=== PATIENT | female | born 1930 | race Caucasian/White ===

== ENCOUNTER 2017-12-04 15:04 | Inpatient (IN) | payer OTHER ==
[2017-12-04] MEDS ORDERED: METOPROLOL TARTRATE 5 MG/5 ML INJ IV ONE ×2 (15:24→15:27)
[2017-12-04] MEDS ORDERED: NA CHLORIDE 0.9% 1,000 ML ONE (15:24)
[2017-12-04] MEDS ORDERED: DIGOXIN 0.25 MG/ML AMP ONE (15:26)
[2017-12-04 15:34] LABS: Absolute Lymphocytes (CBC) 1.6 K/uL (0.7-4.9); Absolute Monocytes 0.6 K/uL (0.1-1.3); Absolute Neutrophil 4.2 K/uL (1.8-8.0); Basophils % 0.8 % (0-1.3); Eosinophils % 1.4 % (0-4.4); Hematocrit 34.1 % (36.0-45.0); MCH 26.1 pg (27.0-35.0); MCV 80.8 fL (80-100); MPV 8.9 fL (7.6-11.3); Monocytes % 9.7 % (3.3-12.3); RBC Red Blood Cell Count 4.23 M/uL (3.86-4.86)
--- NOTE | 2017-12-04 15:35 | RAD REPORT ---
EXAM DESCRIPTION: RAD - Chest Single View - 12/04/2017 3:31 pm CLINICAL HISTORY: dizziness Chest pain. COMPARISON: Chest Single View dated 03/26/2016; Chest Single View dated 05/29/2015; CHEST SINGLE VIEW dated 08/11/2013; CHEST SINGLE VIEW dated 07/19/2013 FINDINGS: Portable technique limits examination quality. The lungs are grossly clear. The heart is normal in size. No displaced fractures.Multi lead pacer/def ibrillator device present. IMPRESSION: No acute intrathoracic process suspected.
[2017-12-04 15:38] LABS: Protime INR 1.23
[2017-12-04 15:59] LABS: ALT/SGPT 14 U/L (12-78); AST/SGOT 12 U/L (15-37); Albumin 3.3 g/dL (3.4-5.0); Alkaline Phosphatase 86 U/L (45-117); BUN Blood Urea Nitrogen 17 mg/dL (7-18); Bicarbonate 25 mmol/L (21-32); Bilirubin Direct 0.2 mg/dL (0-0.2); Bilirubin Total 0.6 mg/dL (0.2-1.0); Glucose Level 124 mg/dL (74-106); Magnesium 2.4 mg/dL (1.8-2.4); NT PRO-BNP 2850 pg/mL (<450); Potassium 3.4 mmol/L (3.5-5.1); Sodium Level 141 mmol/L (136-145); Troponin (Emerg Dept Use Only) < 0.02 ng/mL (0.0-0.045)
[2017-12-04] MEDS ORDERED: POTASSIUM CL SA 10 MEQ TAB PO ONE (17:02)
--- NOTE | 2017-12-04 17:11 | EDPHYS ---
Physician Documentation [facility] Name: Daxa Arvizu Age: 87 yrs Sex: Female : 1930 Arrival Date: 12/04/2017 Time: 15:06 Bed 2 Private MD: ED Physician Kwame Plunkett HPI: 12/04 15:42 This 87 yrs old Female presents to ER via EMS with complaints of Dizziness - pm1 Fatigue. 15:42 The patient presents with generalized weakness. Onset: The symptoms/episode pm1 began/occurred 3 week(s) ago. Context: occurred at home, just prior to the episode the patient experienced generalized weakness. Modifying factors: The symptoms are alleviated by nothing, the symptoms are aggravated by standing up. Associated signs and symptoms: Pertinent positives: "Chest discomfort" for the past 3 weeks, Pertinent negatives: abdominal pain, diaphoresis, focal weakness, headache, numbness, shortness of breath, tingling, Fall injury. Severity of symptoms: in the emergency department the symptoms are worse. Patient's baseline: Neuro: alert and fully oriented, Motor: no deficits, Speech: normal, The patient has a previous history of Atrial fibrillation and pacemaker. The patient has not experienced similar symptoms in the past. The patient has been recently seen by a physician: Dr. Keen 3 weeks ago, patient requested change in medication from Xarelto to Eliquis due to the cost. Patient presenting to the ER with complaints of generalized weakness for the past 3 weeks. Has reported some chest discomfort with her generalized weakness. Generalized weakness worse with standing up and ambulation with walker. No shortness of breath. Patient reports that she does not take any medications for rate control. Metoprolol is on her medication list but she denies that she takes the medication. Patient recently had Xarelto changed to Eliquis due to cost issues 3 weeks ago but she is planning to return to Xarelto due single day dosing. Historical: - Allergies: 15:23 Codeine; kr2 15:23 Sulfa (Sulfonamide Antibiotics); kr2 - PMHx: 15:23 Atrial Fib; CHF; Hyperlipidemia; Hypothyroidism; legally blind; osteoarthritis; kr2 Osteoporosis; Pacemaker; acid reflux; - Immunization history:: Adult Immunizations unknown. - Social history:: Smoking status: Patient/guardian denies using tobacco. - Ebola Screening: : Patient negative for fever greater than or equal to 101.5 degrees Fahrenheit, and additional compatible Ebola Virus Disease symptoms. ROS: 15:42 Eyes: Negative for injury, pain, redness, and discharge, ENT: Negative for injury, pm1 pain, and discharge, Neck: Negative for injury, pain, and swelling, Cardiovascular: Negative for chest pain, palpitations, and edema, Respiratory: Negative for shortness of breath, cough, wheezing, and pleuritic chest pain, Abdomen/GI: Negative for abdominal pain, nausea, vomiting, diarrhea, and constipation, Back: Negative for injury and pain, : Negative for injury, bleeding, discharge, and swelling, MS/Extremity: Negative for injury and deformity, Skin: Negative for injury, rash, and discoloration. 15:42 Constitutional: Positive for fatigue, Negative for body aches, fever, poor PO intake. 15:42 Neuro: Positive for generalized weakness, Negative for headache, numbness, seizure activity, syncope, near syncope, tingling. Exam: 15:42 Constitutional: This is a well developed, well nourished patient who is awake, alert, pm1 and in no acute distress. Head/Face: Normocephalic, atraumatic. Eyes: Pupils equal round and reactive to light, extra-ocular motions intact. Lids and lashes normal. Conjunctiva and sclera are non-icteric and not injected. Cornea within normal limits. Periorbital areas with no swelling, redness, or edema. ENT: Nares patent. No nasal discharge, no septal abnormalities noted. Tympanic membranes are normal and external auditory canals are clear. Oropharynx with no redness, swelling, or masses, exudates, or evidence of obstruction, uvula midline. Mucous membranes moist. Neck: Trachea midline, no thyromegaly or masses palpated, and no cervical lymphadenopathy. Supple, full range of motion without nuchal rigidity, or vertebral point tenderness. No Meningismus. Chest/axilla: Normal chest wall appearance and motion. Nontender with no deformity. No lesions are appreciated. 15:42 Respiratory: Lungs have equal breath sounds bilaterally, clear to auscultation and percussion. No rales, rhonchi or wheezes noted. No increased work of breathing, no retractions or nasal flaring. Abdomen/GI: Soft, non-tender, with normal bowel sounds. No distension or tympany. No guarding or rebound. No evidence of tenderness throughout. Back: No spinal tenderness. No costovertebral tenderness. Full range of motion. Skin: Warm, dry with normal turgor. Normal color with no rashes, no lesions, and no evidence of cellulitis. MS/ Extremity: Pulses equal, no cyanosis. Neurovascular intact. Full, normal range of motion. 15:42 ECG was reviewed by the Attending Physician. Atrial fibrillation 170 bpm 15:42 Neuro: Orientation: is normal, Mentation: is normal, Motor: is normal, moves all fours, Sensation: is normal, no obvious gross deficits. Vital Signs: 15:10 BP 129 / 69; Pulse 169; Resp 18; Temp 98.1; Pulse Ox 97% ; Weight 76.66 kg; Height 5 kr2 ft. 7 in. (170.18 cm); Pain 1/10; 15:27 BP 149 / 85; Pulse 106; Resp 20; Pulse Ox 100% on R/A; Pain 0/10; ss 16:30 BP 157 / 77; Pulse 99; Resp 18 S; Pulse Ox 100% on R/A; Pain 0/10; rv 17:38 BP 153 / 87; Pulse 95; Pulse Ox 97% on R/A; rv 17:52 BP 149 / 61; Pulse 96; Resp 19 S; Pulse Ox 98% on R/A; rv 19:13 BP 151 / 86; Pulse 96; Resp 17 S; Pulse Ox 100% on R/A; jd3 15:10 Body Mass Index 26.47 (76.66 kg, 170.18 cm) kr2 MDM: 15:08 Patient medically screened. pm1 15:20 ED course: Consult with carlos Barrientos digoxin 0.5 mg IVP and Lopressor 5 mg IVP x pm1 1 now and additional Lopressor 5 mg x 2 if needed for rate management and patient's blood pressure is normotensive. 17:09 Data reviewed: vital signs. Data interpreted: Pulse oximetry: on room air is 100 %. pm1 Interpretation: normal. Counseling: I had a detailed discussion with the patient and/or guardian regarding: the historical points, exam findings, and any diagnostic results supporting the discharge/admit diagnosis, lab results, radiology results, the need for further work-up and treatment in the hospital. 18:44 Physician consultation: A Jed BURGESS was called at 18:44, was contacted at 18:44, pm1 regarding admission, patient's condition, and will see patient tomorrow, Place patient as inpatient . 12/04 15:13 Order name: Basic Metabolic Panel pm1 12/04 15:13 Order name: CBC with Diff pm1 12/04 15:13 Order name: LFT's pm1 12/04 15:13 Order name: Magnesium; Complete Time: 16:02 pm1 12/04 15:13 Order name: NT PRO-BNP; Complete Time: 16:02 pm1 12/04 15:13 Order name: PT-INR; Complete Time: 16:02 pm1 12/04 15:13 Order name: Troponin (emerg Dept Use Only); Complete Time: 16:02 pm1 12/04 15:13 Order name: TSH; Complete Time: 16:02 pm1 12/04 15:14 Order name: Basic Metabolic Panel; Complete Time: 16:02 EDMS 12/04 15:14 Order name: CBC with Automated Diff; Complete Time: 15:41 EDMS 12/04 15:14 Order name: Liver (Hepatic) Function; Complete Time: 16:02 EDMS 12/04 16:02 Order name: Urine Microscopic Only; Complete Time: 18:28 pm1 12/04 18:14 Order name: Urine Dipstick--Ancillary (enter results); Complete Time: 20:22 bd 12/04 18:25 Order name: Urine Culture EDMS 12/04 15:13 Order name: XRAY Chest (1 view); Complete Time: 15:41 pm1 12/04 15:13 Order name: EKG; Complete Time: 15:14 pm1 12/04 15:13 Order name: Cardiac monitoring; Complete Time: 15:24 pm1 12/04 15:13 Order name: EKG - Nurse/Tech; Complete Time: 15:24 pm1 12/04 15:13 Order name: IV Saline Lock; Complete Time: 15:24 pm1 12/04 15:13 Order name: Labs collected and sent; Complete Time: 15:24 pm1 12/04 15:13 Order name: O2 Per Protocol; Complete Time: 15:24 pm1 12/04 15:13 Order name: O2 Sat Monitoring; Complete Time: 15:24 pm1 12/04 16:02 Order name: Urine Dipstick-Ancillary (obtain specimen); Complete Time: 17:35 pm1 12/04 17:25 Order name: EKG Electrocardiogram EDMS Administered Medications: 15:23 Drug: Lopressor 5 mg {Note: BP 149/85, HR 167.} Route: IVP; Site: left antecubital; hb 16:58 Follow up: Response: No adverse reaction rv 15:27 Drug: Digoxin 0.5 mg Route: IVP; Site: left antecubital; ss 16:59 Follow up: Response: No adverse reaction rv 16:58 Drug: Potassium Chloride 20 mEq Route: PO; rv 17:35 Follow up: Response: No adverse reaction rv 18:30 Drug: Rocephin 1 grams Route: IV; Rate: calculated rate; Site: right antecubital; rv 19:14 Follow up: Response: No adverse reaction; IV Status: Completed infusion jd3 19:09 Drug: Xarelto 20 mg Route: PO; jd3 19:56 Follow up: Response: No adverse reaction jd3 19:28 Drug: Metoprolol 25 mg Route: PO; jd3 19:56 Follow up: Response: No adverse reaction jd3 Disposition: 12/05 07:47 Co-signature as Attending Physician, Kwame Plunkett MD I agree with the assessment and wa plan of care. Disposition: 12/04/17 17:10 Hospitalization ordered by Bianka Adkins for Inpatient Admission. Preliminary diagnosis is Atrial fibrillation and flutter. - Bed requested for Telemetry/MedSurg (Inpatient). - Status is Inpatient Admission. jd3 - Condition is Stable. - Problem is new. - Symptoms have improved. UTI on Admission? Yes Signatures: Dispatcher [employer] EDVT Larissa Hilario RN RN dw Smirch, Shelby, RN RN ss Marinas, Patrick, JESSICA DIRECTOR OF CRITICAL CARE pm1 Diann Petersen RN RN Kwame Plunkett MD MD wa Davies, Jonathon, RN RN jPat Drew RN RN kr2 Ollie Mendez RN RN rv Corrections: (The following items were deleted from the chart) 12/04 18:45 17:10 Hospitalization Ordered by Bianka Adkins MD for Inpatient Admission. Preliminary pm1 diagnosis is Atrial fibrillation and flutter. Bed requested for Telemetry/MedSurg (Inpatient). Status is Inpatient Admission. Condition is Stable. Problem is new. Symptoms have improved. UTI on Admission? No. pm1 19:06 18:45 12/04/2017 17:10 Hospitalization Ordered by A Jed BURGESS for Inpatient Admission. dw Preliminary diagnosis is Atrial fibrillation and flutter. Bed requested for Telemetry/MedSurg (Inpatient). Status is Inpatient Admission. Condition is Stable. Problem is new. Symptoms have improved. UTI on Admission? Yes. pm1 20:18 19:06 12/04/2017 17:10 Hospitalization Ordered by A Jed BURGESS for Inpatient Admission. jd3 Preliminary diagnosis is Atrial fibrillation and flutter. Bed requested for Telemetry/MedSurg (Inpatient). Status is Inpatient Admission. Condition is Stable. Problem is new. Symptoms have improved. UTI on Admission? Yes. dw
--- NOTE | 2017-12-04 17:11 | ER ---
Nurse's Notes [facility] Name: Daxa Arvizu Age: 87 yrs Sex: Female : 1930 Arrival Date: 12/04/2017 Time: 15:06 Bed 2 Private MD: Diagnosis: Atrial fibrillation and flutter Presentation: 12/04 15:07 Presenting complaint: EMS states: Patient complains of dizziness and fatigue since kr2 switching from Xarelto to Eliquis 3 weeks ago, states today she felt worse and her blood pressure read low on her home monitor. Transition of care: patient was not received from another setting of care. Onset of symptoms was December 04, 2017. Risk Assessment: Do you want to hurt yourself or someone else? Patient reports no desire to harm self or others. Initial Sepsis Screen: Does the patient meet any 2 criteria? No. Patient's initial sepsis screen is negative. Does the patient have a suspected source of infection? No. Patient's initial sepsis screen is negative. Care prior to arrival: None. 15:07 Method Of Arrival: EMS kr2 15:07 Acuity: SOHAN 2 kr2 Historical: - Allergies: 15:23 Codeine; kr2 15:23 Sulfa (Sulfonamide Antibiotics); kr2 - PMHx: 15:23 Atrial Fib; CHF; Hyperlipidemia; Hypothyroidism; legally blind; osteoarthritis; kr2 Osteoporosis; Pacemaker; acid reflux; - Immunization history:: Adult Immunizations unknown. - Social history:: Smoking status: Patient/guardian denies using tobacco. - Ebola Screening: : Patient negative for fever greater than or equal to 101.5 degrees Fahrenheit, and additional compatible Ebola Virus Disease symptoms. Screenin:24 Abuse screen: Denies threats or abuse. Denies injuries from another. Nutritional hb screening: No deficits noted. Tuberculosis screening: No symptoms or risk factors identified. Fall Risk None identified. Assessment: 15:10 Reassessment: EKG performed showing Afib, pulse of 169, provider notified, patient carleen moved to Trauma room 2. 15:20 General: Appears in no apparent distress. comfortable, Behavior is calm, cooperative, ss Reports fatigue for x "a few days". Denies fever, feeling ill. Pain: Denies pain. Neuro: Level of Consciousness is awake, alert, obeys commands, Oriented to person, place, time, situation, Speech is normal. Cardiovascular: Heart tones S1 S2 present Capillary refill < 3 seconds is brisk in bilateral fingers Patient's skin is warm and dry. Respiratory: Reports shortness of breath on exertion Airway is patent Respiratory effort is even, unlabored, Denies pain with respiration, pain with cough, pain with movement. GI: No signs and/or symptoms were reported involving the gastrointestinal system. Patient currently denies abdominal pain, diarrhea, nausea, vomiting. : No signs and/or symptoms were reported regarding the genitourinary system. EENT: Nares are clear Oral mucosa is moist. Throat is clear. Derm: Skin is intact, is healthy with good turgor, Skin is dry, Skin is pink, warm \\T\\ dry. normal. Musculoskeletal: Circulation, motion, and sensation intact. Range of motion: intact in all extremities, Swelling absent. 16:31 Reassessment: Patient appears in no apparent distress at this time. Patient and/or rv family updated on plan of care and expected duration. Pain level reassessed. Patient is alert, oriented x 3, equal unlabored respirations, skin warm/dry/pink. 17:35 Reassessment: Patient appears in no apparent distress at this time. Patient and/or rv family updated on plan of care and expected duration. Pain level reassessed. Patient is alert, oriented x 3, equal unlabored respirations, skin warm/dry/pink. REFUSED STRAIGHT CATHETER. 19:13 Reassessment: Patient appears in no apparent distress at this time. No changes from jd3 previously documented assessment. Patient and/or family updated on plan of care and expected duration. Pain level reassessed. Patient is alert, oriented x 3, equal unlabored respirations, skin warm/dry/pink. Vital Signs: 15:10 BP 129 / 69; Pulse 169; Resp 18; Temp 98.1; Pulse Ox 97% ; Weight 76.66 kg; Height 5 kr2 ft. 7 in. (170.18 cm); Pain 1/10; 15:27 BP 149 / 85; Pulse 106; Resp 20; Pulse Ox 100% on R/A; Pain 0/10; ss 16:30 BP 157 / 77; Pulse 99; Resp 18 S; Pulse Ox 100% on R/A; Pain 0/10; rv 17:38 BP 153 / 87; Pulse 95; Pulse Ox 97% on R/A; rv 17:52 BP 149 / 61; Pulse 96; Resp 19 S; Pulse Ox 98% on R/A; rv 19:13 BP 151 / 86; Pulse 96; Resp 17 S; Pulse Ox 100% on R/A; jd3 15:10 Body Mass Index 26.47 (76.66 kg, 170.18 cm) kr2 ED Course: 15:06 Patient arrived in ED. kr2 15:08 Nino Murillo NP is PHCP. pm1 15:08 Kwame Plunkett MD is Attending Physician. pm1 15:09 Triage completed. kr2 15:10 EKG done, by ED staff, reviewed by Nino Murillo NP. kr2 15:17 EKG completed in triage. Results shown to MD. rv 15:19 Patient has correct armband on for positive identification. Placed in gown. Bed in low hb position. Call light in reach. Side rails up X 1. equipment monitor phototypesetting on. Pulse ox on. NIBP on. 15:19 Inserted saline lock: 20 gauge in left antecubital area, using aseptic technique. Blood hb collected. 15:27 Arm band placed on right wrist. ss 15:31 XRAY Chest (1 view) In Process Unspecified. EDMS 15:49 Tracy Monte, TERRI is Primary Nurse. ss 16:59 Basic Metabolic Panel Sent. rv 16:59 CBC with Diff Sent. rv 16:59 LFT's Sent. rv 17:10 Bianka Adkins MD is Hospitalizing Provider. pm1 17:36 Urine collected: PATIENT REFUSED STRAIGHT CATHETER. rv 18:50 Awaiting bed assignment. rv 19:16 Report given to AMELIA MURRAY. rv 19:55 No provider procedures requiring assistance completed. Patient admitted, IV remains in jd3 place. Administered Medications: 15:23 Drug: Lopressor 5 mg {Note: BP 149/85, HR 167.} Route: IVP; Site: left antecubital; hb 16:58 Follow up: Response: No adverse reaction rv 15:27 Drug: Digoxin 0.5 mg Route: IVP; Site: left antecubital; ss 16:59 Follow up: Response: No adverse reaction rv 16:58 Drug: Potassium Chloride 20 mEq Route: PO; rv 17:35 Follow up: Response: No adverse reaction rv 18:30 Drug: Rocephin 1 grams Route: IV; Rate: calculated rate; Site: right antecubital; rv 19:14 Follow up: Response: No adverse reaction; IV Status: Completed infusion jd3 19:09 Drug: Xarelto 20 mg Route: PO; jd3 19:56 Follow up: Response: No adverse reaction jd3 19:28 Drug: Metoprolol 25 mg Route: PO; jd3 19:56 Follow up: Response: No adverse reaction jd3 Outcome: 17:10 Decision to Hospitalize by Provider. pm1 19:55 Admitted to Tele accompanied by tech, via wheelchair, room 401, with chart, Report jd3 called to Swapna MURRAY 19:55 Condition: stable 19:55 Instructed on the need for admit, Demonstrated understanding of instructions. 20:18 Patient left the ED. jd3 Signatures: Dispatcher [employer] EDMS Tracy Monte RN RN ss Nino Murillo, COMMUNITY ENGAGEMENT REPRESENTATIVE COMMUNITY ENGAGEMENT REPRESENTATIVE pm1 Diann Petersen RN RN hb Davies, Jonathon, RN RN jd3 Pat Nuñez RN RN kr2 Ollie Mendez RN RN rv Corrections: (The following items were deleted from the chart) 15:13 15:07 Acuity: SOHAN 3 kr2 kr2
[2017-12-04 18:23] LABS: Urine Bacteria 20-50 /HPF (<20); Urine Culture Reflex Order REFLEXED; Urine RBC <5 /HPF (NONE SEEN)
[2017-12-04] MEDS ORDERED: CEFTRIAXONE 1000 MG/VIAL ONE (18:38)
[2017-12-04] MEDS ORDERED: RIVAROXABAN 20 MG TABLET PO ONE (19:00)
[2017-12-04] MEDS ORDERED: METOPROLOL TAR 25 MG TAB ONE (19:29)
[2017-12-04 19:33] LABS: Urine Blood TRACE (NEG); Urine Glucose NEGATIVE (NEG); Urine Protein NEGATIVE (NEG); Urine Specific Gravity 1.015 (1.005-1.030)
[2017-12-04] MEDS ORDERED: ACETAMINOPHEN 500 MG TAB PO PRN (20:25)
[2017-12-05 06:00] LABS: Absolute Lymphocytes (CBC) 1.8 K/uL (0.7-4.9); Absolute Monocytes 0.7 K/uL (0.1-1.3); Absolute Neutrophil 2.9 K/uL (1.8-8.0); Basophils % 0.8 % (0-1.3); Hematocrit 31.9 % (36.0-45.0); Lymphocytes % 32.1 % (15.3-44.8); MCH 26.1 pg (27.0-35.0); MCV 80.4 fL (80-100); Monocytes % 12.4 % (3.3-12.3); RBC Red Blood Cell Count 3.97 M/uL (3.86-4.86)
[2017-12-05] MEDS ORDERED: METOPROLOL TAR 25 MG TAB PO SCH (06:00)
[2017-12-05 06:25] LABS: Potassium 4.9 mmol/L (3.5-5.1)
--- NOTE | 2017-12-05 07:48 | EKG ---
Test Date: 2017-12-05 Test Time: 01:30:14 Cloth Colorer: HEAVEN MEASUREMENT RESULTS: Intervals: Rate: 81 [place]: QRSD: 126 QT: 406 QTc: 471 [place]: P: [place]: QRS: -78 T: 101 INTERPRETIVE STATEMENTS: Atrial-sensed ventricular-paced rhythm Tracking sinus rhythm Compared to ECG 12/04/2017 15:34:52 atrial rhythm is no longer fibrillation Electronically Signed On 12-05-17 07:48:08 CDT by Yimi Chris
--- NOTE | 2017-12-05 07:51 | EKG ---
Test Date: 2017-12-04 Test Time: 15:34:52 Correctional Treatment Specialist: VAZQUEZ MEASUREMENT RESULTS: Intervals: Rate: 94 [place]: QRSD: 124 QT: 384 QTc: 480 [place]: P: [place]: QRS: -74 T: 101 INTERPRETIVE STATEMENTS: Atrial-sensed ventricular-paced rhythm tracking Atrial fibrillation Biventricular pacemaker detected Abnormal ECG Compared to ECG 12/04/2017 15:11:04 Ventricular tachycardia is no longer present Electronically Signed On 12-05-17 07:50:34 CDT by Yimi Chris
--- NOTE | 2017-12-05 07:52 | EKG ---
Test Date: 2017-12-04 Test Time: 15:11:04 Shuttle Car Operator: MEASUREMENT RESULTS: Intervals: Rate: 170 [place]: QRSD: 134 QT: 302 QTc: 507 [place]: P: [place]: QRS: -59 T: 106 INTERPRETIVE STATEMENTS: Ventricular tachycardia Abnormal ECG Compared to ECG 03/26/2016 01:33:11 Atrial-sensed ventricular-paced rhythm is no longer present Electronically Signed On 12-05-17 07:51:28 CDT by Yimi Chris
[2017-12-05] MEDS ORDERED: INFLUENZA VACCINE (for 3y+) 0.5 ML DOSE IMVAC ONE (08:00)
--- NOTE | 2017-12-05 12:28 | CON ---
History Of Present Illness: Mrs. Arvizu is 87. She came to the hospital with her heart racing. She was in what looks like ventricular tachycardia. It could be atrial flutter with 1:1 conduction and left bundle-branch block aberrancy. A pacemaker check will tell us. In any event, the defibrillator apparently did not terminate the rhythm as it should have, so it was a problem. In the emergency ro om, she was seen and I think she received some beta-blockers and then went into AFib for now, now she is in sinus rhythm, and the defibrillator is sensing atrial activity, pacing the ventricle, biventri cular pacing. She received Lopressor and digoxin and that converted her rhythm. She is not on cardi oversion. The patient has had a defibrillator for several years. It is a Medcurrent device _ the last time we checked it was August of this year. It was working fine. She has a history of coronary heart disease. She has stents in her heart, and she has cardiomyopathy. Most recent EF s are close to the normal range. Medications: Outpatient medications have been ranitidine, simvastatin, hydromorphone, folic acid, Xa relto, docusate, alendronate, omeprazole, latanoprost, ropinirole, and levothyroxine. Physical Examination: VITAL SIGNS: 5 feet and 9 inches, 155 pounds. HEENT: Normal. Lungs: Clear. Heart: Regular rate and rhythm. There is a 1/6 holosystolic murmur. No diastolic murmur. Abdomen: Soft. Extremities: No edema. Distal pulses palpable. Social History: The patient uses no tobacco. No illegal drugs or alcohol. Impression: The patient had severe ventricular tachycardia or a very rapid atrial flutter that was f tomeka to be addressed appropriately via the defibrillator. We will get a defibrillator check. A [employer] rep will be asked to come today and we will go over reprogramming things with her elec trophysiologist while the rep is here. JETHRO Voice ID: [id number] Report ID: [id number]
--- NOTE | 2017-12-05 12:53 | ECHO ---
HEIGHT: 5 ft 9 in WEIGHT: 155 lb 8 oz DATE OF STUDY: 12/05/[address]: Nino Murillo NP 2-DIMENSIONAL: YES M.MODE: YES DOPPLER: YES COLOR FLOW: YES TDS: NO PORTABLE: NO DEFINITY: NO BUBBLE STUDY: NO DIAGNOSIS: ATRIAL FIBRILLATION CARDIAC HISTORY: CATHERIZATION: YES SURGERY: YES PROSTHETIC VALVE: NO PACEMAKER: YES MEASUREMENTS (cm) DIASTOLIC (NORMALS) SYSTOLIC (NORMALS) IVSd 1.1 (0.6-1.2) LA Diam 3.6 (1.9-4.0) LVEF 58% LVIDd 4.4 (3.5-5.7) LVIDs 3.0 (2.0-3.5) %FS 31% LVPWd 1.1 (0.6-1.2) Ao Diam 3.0 (2.0-3.7) 2 DIMENSIONAL ASSESSMENT: RIGHT ATRIUM: DILATED LEFT ATRIUM: NORMAL RIGHT VENTRICLE: PACEMAKER CATHETER LEFT VENTRICLE: NORMAL TRICUSPID VALVE: NORMAL MITRAL VALVE: NORMAL PULMONIC VALVE: NORMAL AORTIC VALVE: MILD SCLEROSIS PERICARDIAL EFFUSION: NONE AORTIC ROOT: NORMAL LEFT VENTRICULAR WALL MOTION: NORMAL DOPPLER/COLOR FLOW: MILD AORTIC, MITRAL AND TRICUSPID REGURGITATION. NORMAL RIGHT VENTRICULAR SYSTOLIC PRESSURE. NO AORTIC STENOSIS. COMMENTS: NORMAL LEFT VENTRICULAR EJECTION FRACTION. DILATED RIGHT ATRIUM. PACEMAKER CATHETER IN RIGHT VENTRICLE. MILD AORTIC SCLEROSIS WITH NO AORTIC STENOSIS. MILD AORTIC, MITRAL AND TRICUSPID REGURGITATION. TECHNOLOGIST: Arie WHARTON
[2017-12-05] MEDS ORDERED: RIVAROXABAN 10 MG TABLET PO SCH (17:00)
[2017-12-05] MEDS: RIVAROXABAN 20 MG TABLET PO SCH (17:11)
[2017-12-05] MEDS: SOTALOL HCL 80 MG TAB PO SCH (17:11)
--- NOTE | 2017-12-05 18:52 | SS ---
Date of Admission: 12/05/2017 Chief Complaint: Feeling weak, tired, and palpitation. History Of Present Illness: This is an 87-year-old female patient who lives at home, has history of atrial fibrillation and was taking Xarelto, but due to the cost, it was changed about 2-3 weeks ago to Eliquis, after she saw Dr. Blount. The patient realized that the Eliquis cost was as much as Xarelto, so she went back on Xarelto 20 mg daily dose. Meanwhile in last 2 weeks, she is having problem with the palpitation off and on along with feeling weak, tired, and she came in with increasing problems, increasing complaints to emergency room yesterday. After she was evaluated in the ER, she was found to have atrial fibrillation with rapid ventricular rate with heart rate around 170 per minute. She was hemodynamically stable. She was given IV and oral metoprolol and anticoagulation therapy was given and she was admitted to the hospital. When I saw her this morning, she was feeling fine, had no complaints. She denies any chest pain or shortness of breath. No fall injury. No vomiting or diarrhea. Allergies: TO SULFA AND CODEINE. Medications: List reviewed. Review of Systems: Cardiovascular: As mentioned above. Constitutional: As mentioned above. All other systems reviewed and negative. Family History: Significant for osteoarthritis and liver cancer. Social History: Negative for smoking, alcohol use. Past Surgical History: Coronary artery angioplasty with stent placement in 2008 , hysterectomy, AICD placement July 27, 2013; kyphoplasty in 2009 for compression fracture of thoracic spine; foot and hand surgery, breast biopsy, and D and C. Past Medical History: Significant for compression fracture of spine, hyperlipidemia, impaired fasting glucose, hypertension, hypothyroidism, chronic systolic congestive heart failure, paroxysmal atrial fibrillation. Osteoarthritis at multiple sites, gastroesophageal reflux disease, and the patient is legally blind. Physical Examination: Vital Signs: This morning, temperature 97.1, pulse 81, respiratory rate 20, blood pressure 165/72, oxygen saturation 96%, height 5 feet 9 inches, weight 155 pounds. General: Awake, alert, oriented, not in distress. HEENT: Head atraumatic, normocephalic. Conjunctivae nonerythematous. Sclerae white. Mouth, no thrush or edema noted. Ears/Nose, no mass, lesion, discharge noted. Neck: Supple. No JVD, lymph nodes, bruit, thyromegaly noted. Lungs: Bilateral good equal air entry. Clear to auscultation. No rhonchi. No rales. Heart: Normal heart sounds, no murmur or gallop. Abdomen: Soft, bowel sounds normal. No guarding, rigidity, tenderness, mass, hepatosplenomegaly, distention, or bruit noted. Extremities: No leg edema. No calf tenderness. Skin: No rash, ulcer, cellulitis. Lymphatics: No lymph node enlargement in neck, supraclavicular, infraclavicular region. Neuro: No focal neurological deficit. Chest: Unremarkable. External Genitalia: Deferred. Rectal: Deferred. Laboratory Data: Yesterday sodium 141, potassium 3.4, chloride 110, bicarb 25, BUN 17, creatinine 1.10, glucose 124. Liver function tests unremarkable. Troponin less than 0.02 on the first set. Second and third set 0.03. ProBNP 2850. Liver function tests unremarkable. TSH 1.3. This morning, sodium 143, potassium 4.9, chloride 111, bicarb 27, BUN 16, creatinine 1.0, glucose 105. ProBNP 4995. INR 1.23. Urinalysis, trace esterase, wbc less than 5, bacteria 20-50. Yesterday, white count 6.6, hemoglobin 11, platelets 256; this morning white count 5.6, hemoglobin 10.4, platelets 239. Chest x-ray, no acute intrathoracic changes. Electrocardiogram, atrial sensed ventricular paced rhythm. Hospital Course: After the patient was admitted to the hospital, she was kept on telemetry overnight. Her condition has remained stable. This morning when I saw her, she had no complaints. There was no clinical evidence of any congestive heart failure. Electrolyte was corrected. Potassium is normal, this morning. Cardiology consultation is pending. After Commercial Roofer has chance to evaluate the patient, we will decide if okay with personnel security specialist, our plan is to discharge the patient to go home. I did discuss with her to continue her Xarelto that she takes at home. She takes it probably around lunch time but I explained it to her to take it with her evening meal as her evening meal is the biggest meal of the day. We will also continue metoprolol at current dose. Upon discharge, the patient to continue all her previous home medications the way she was taking, including Xarelto and add metoprolol 25 mg twice a day as prescribed. The patient has appointment to see me at office in about 2 weeks and she was advised to keep that appointment and she should follow up with Commercial Roofer per Commercial Roofer's instruction. Final Diagnoses: 1. Atrial fibrillation with rapid ventricular rate. 2. Hypokalemia. 3. Hypertension. 4. Hyperlipidemia. 5. Chronic systolic congestive heart failure. 6. Hypothyroidism. 7. Impaired fasting glucose. 8. Gastroesophageal reflux disease. 9. Osteoarthritis, multiple sites. VLADIMIR/MODL Voice ID: [id number] Report ID: [id number] MTDD
[2017-12-05] MEDS ORDERED: HYDROMORPHONE ORAL 4 MG TAB PO PRN (19:19)
[2017-12-05] MEDS ORDERED: DOCUSATE NA 100 MG CAP PO PRN (19:19)
[2017-12-05] MEDS ORDERED: ATORVASTATIN 20 MG TAB PO SCH (21:00)
[2017-12-05] MEDS ORDERED: RANITIDINE 150 MG TABLET PO SCH (21:00)
[2017-12-05] MEDS ORDERED: ROPINIROLE HCL 0.25 MG TAB PO SCH (21:00)
[2017-12-05] MEDS: PANTOPRAZOLE 40MG TABLET PO SCH (21:29)
[2017-12-06 05:31] VITALS: BMI 23.0
[2017-12-06] MEDS: LEVOTHYROXINE SOD 0.088 MG TAB PO SCH ×2 (05:41→05:49)
[2017-12-06] MEDS: SOTALOL HCL 80 MG TAB PO SCH ×2 (05:41→17:26)
[2017-12-06] MEDS ORDERED: LEVOTHYROXINE SOD 0.075 MG TAB PO SCH (06:00)
--- NOTE | 2017-12-06 08:16 | DS ---
Date of Discharge: 12/06/2017 Disposition: The patient will be discharged to go home. Physical Examination: HEENT: Unremarkable. Lungs: Clear to auscultation. Heart: Sounds normal. Abdomen: Soft. Bowel sounds normoactive. No guarding, rigidity, tenderness, or distention. Extremities: No leg edema. Discharge Medications And Instructions: 1.Continue all prior home medications except do not take any metoprolol and start to take sotalol 80 mg 1 tablet by mouth 2 times a day. 2.Follow up at my office per scheduled appointment, which is this month and follow up with cardiolog ist, Dr. Blount as per his instruction in next 1-2 weeks. Hospital Course: An 87-year-old female patient who was admitted to the hospital after she came into emergency room with palpitation, feeling weak and tired. Please see dictated H and P for more inform ation. The patient was in atrial fibrillation with rapid ventricular rate in the emergency room. Natalie sanchez normally takes Xarelto at home and her Xarelto was continued. Echocardiogram revealed normal eject ion fraction of 58%. Her atrial fibrillation was treated in the emergency room with IV metoprolol an d oral metoprolol was started. Cardiology consultation was requested. Dr. Chris saw her from [facility] yesterday and he stopped metoprolol and started her on sotalol. The patient has tolera robinson this very well. This morning, she is feeling fine, asymptomatic and the patient will be discharg ed to go home hopefully today when okay with wheel braider. Her potassium was low when she came in, w hich was 3.4, it was corrected yesterday, potassium came up to 4.9. Clinically, there is no evidence of any congestive heart failure problem. Final Diagnoses: 1.Atrial fibrillation with rapid ventricular rate. 2.Hypokalemia. 3.Hypertension. 4.Hyperlipidemia. 5.Chronic systolic congestive heart failure. 6.Hypothyroidism. 7.Impaired fasting glucose. 8.Gastroesophageal reflux disease. 9.Osteoarthritis, multiple sites. Special Instructions Given To Patient: That yesterday I did send a prescription for metoprolol to [facility] pharmacy, but her metoprolol has been discontinued by wheel braider, and sotalol was started yesterd ay, so the patient was instructed not to supervisor picking crew the prescription for metoprolol from pharmacy and we will also have nursing staff contact pharmacy to cancel that prescription as patient will be taking sotalol as prescribed. VLADIMIR/MODL Voice ID: [id number] Report ID: [id number]
[2017-12-06] MEDS ORDERED: HOME MED 1 EA UNK (Latanoprost/Pf [Latanoprost 0.005% Eye Drop] 1 DROP) EACH EYE SCH (09:00)
[2017-12-06] MEDS ORDERED: FOLIC ACID 1 MG TABLET PO SCH (09:00)
[2017-12-06] MEDS: PANTOPRAZOLE 40MG TABLET PO SCH (10:11)
[2017-12-06 10:41] VITALS: O2SAT 97
[2017-12-06 13:18] VITALS: TEMP 97.5
--- NOTE | 2017-12-06 16:04 | PN ---
Date of Progress Note: 12/06/2017 Ms. Arvizu was admitted to Dr. Adkins on 12/05/[address] Chris for rapid atrial flutter brabara tahir [place]. She has a history of defibrillator, CHF that has resolved, CAD status post PCI, dyslipidemia , and history of atrial fibrillation. Interrogation by the defibrillator showed that it was not set up to terminate atrial fibrillation, but that was the rhythm she had, so we switched to Betapace from metoprolol 80 b.i.d. She has received 1 dose. No QT prolongation. Sinus rhythm today. She can go home after the third dose of Betapace. She is to continue her Xarelto and [facility] 2 [facility]. ANTONINO/ALLA Voice ID: [id number] Report ID: [id number]
[2017-12-06] MEDS: RIVAROXABAN 20 MG TABLET PO SCH (17:26)
[2017-12-06 17:27] VITALS: BP 141/63
== END 2017-12-06 17:55 | disposition home or self-care (01) | DRG 309 ==
LOC: ER 15:04 → OBSVTOIN 18:46 → INTOOBSV 18:46 → ERHOLD 18:46 → 4TH 19:55 → OBSVTOIN 12-05 19:17
PROVIDERS: ADMIT Internal Medicine; ATTEND Internal Medicine
DX: I48.0 Paroxysmal atrial fibrillation (principal); I50.22 Chronic systolic (congestive) heart failure; E87.6 Hypokalemia; I11.0 Hypertensive heart disease with heart failure; E78.5 Hyperlipidemia, unspecified; E03.9 Hypothyroidism, unspecified; K21.9 Gastro-esophageal reflux disease without esophagitis; M19.90 Unspecified osteoarthritis, unspecified site; Z88.5 Allergy status to narcotic agent; Z88.2 Allergy status to sulfonamides; R73.02 Impaired glucose tolerance (oral); Z79.01 Long term (current) use of anticoagulants; Z95.810 Presence of automatic (implantable) cardiac defibrillator
CPT/HCPCS: 36415; 71045; 80048; 80076; 81003; 81015; 83735; 83880; 84443; 84484; 85025; 85610; 87086; 87088; 93005; 93306; 96365; 96375; 99285; G0008; G0378; J1160; J7030; Q2035

== ENCOUNTER 2018-03-08 11:06 | Emergency (ER) | payer OTHER ==
[2018-03-08 11:51] LABS: Urine Blood NEGATIVE (NEG); Urine Glucose NEGATIVE (NEG); Urine Protein NEGATIVE (NEG)
[2018-03-08 12:28] LABS: Absolute Lymphocytes (CBC) 1.4 K/uL (0.7-4.9); Absolute Monocytes 0.7 K/uL (0.1-1.3); Absolute Neutrophil 5.1 K/uL (1.8-8.0); Basophils % 0.7 % (0-1.3); Eosinophils % 1.6 % (0-4.4); Hematocrit 33.1 % (36.0-45.0); Lymphocytes % 19.5 % (15.3-44.8); MPV 8.3 fL (7.6-11.3); Monocytes % 8.9 % (3.3-12.3); RBC Red Blood Cell Count 4.14 M/uL (3.86-4.86)
[2018-03-08] MEDS ORDERED: MORPHINE 2 MG/ML SYR ONE ×2 (12:29→13:33)
[2018-03-08 12:32] LABS: Protime INR 1.05
[2018-03-08 12:39] LABS: Potassium 4.1 mmol/L (3.5-5.1)
--- NOTE | 2018-03-08 13:03 | RAD REPORT ---
EXAM DESCRIPTION: RAD - Forearm Left - 03/08/2018 12:50 pm CLINICAL HISTORY: Pain;Deformity COMPARISON: Forearm Left dated 03/26/2016 FINDINGS: Diffuse osteopenia is seen. Hardware is in place in the distal shaft of the radius and uln a. Fracture is suspected involving the distal radius, with impaction and angulation noted along the u lnar aspect.
--- NOTE | 2018-03-08 13:58 | ER ---
Nurse's Notes [facility] Name: Daxa Arvizu Age: 87 yrs Sex: Female : 1930 Arrival Date: 03/08/2018 Time: 11:14 Bed 5 Private MD: Bianka Adkins C Diagnosis: Left distal radius racture, comminuted and slosed Presentation: 03/08 11:15 Presenting complaint: EMS states: MECHANICAL FALL WITH LEFT WRIST INJURY. Transition of bp care: patient was not received from another setting of care. Onset of symptoms was March 08, 2018 at 10:30. Risk Assessment: Do you want to hurt yourself or someone else? Patient reports no desire to harm self or others. Initial Sepsis Screen: Does the patient meet any 2 criteria? No. Patient's initial sepsis screen is negative. Does the patient have a suspected source of infection? No. Patient's initial sepsis screen is negative. Care prior to arrival: Splint applied. Glucose check: 132. 11:15 Method Of Arrival: EMS: [facility] bp 11:15 Acuity: SOHAN 3 bp Triage Assessment: 11:29 General: Appears in no apparent distress. uncomfortable, Behavior is cooperative, bp appropriate for age, anxious. Pain: Complains of pain in left wrist. EENT: No deficits noted. Neuro: Level of Consciousness is awake, alert, obeys commands, Oriented to person, place, time, situation, Appropriate for age. Cardiovascular: No deficits noted. Respiratory: Airway is patent Respiratory effort is unlabored, Respiratory pattern is regular, symmetrical. GI: No signs and/or symptoms were reported involving the gastrointestinal system. : No signs and/or symptoms were reported regarding the genitourinary system. Derm: No deficits noted. Musculoskeletal: Bony deformity noted of left wrist. Injury Description: Deformity sustained to left wrist. Historical: - Allergies: 11:29 Sulfa (Sulfonamide Antibiotics); bp 11:29 Codeine; bp - Home Meds: 11:29 Ranitidine Oral [Active]; Xarelto Oral [Active]; Sotalol Oral [Active]; Simvastatin bp Oral [Active]; Metoprolol Tartrate Oral [Active]; Hydromorphone Oral [Active]; Eliquis oral oral [Active]; - PMHx: 11:29 acid reflux; Atrial Fib; CHF; Hyperlipidemia; Hypothyroidism; legally blind; bp osteoarthritis; Osteoporosis; Pacemaker; - Immunization history:: Adult Immunizations up to date. - Social history:: Smoking status: Patient/guardian denies using tobacco. - Ebola Screening: : Patient negative for fever greater than or equal to 101.5 degrees Fahrenheit, and additional compatible Ebola Virus Disease symptoms Patient denies exposure to infectious person Patient denies travel to an Ebola-affected area in the 21 days before illness onset No symptoms or risks identified at this time. Screenin:17 Abuse screen: Denies threats or abuse. Denies injuries from another. Nutritional bp screening: No deficits noted. Tuberculosis screening: No symptoms or risk factors identified. Fall Risk None identified. Assessment: 11:30 General: Appears in no apparent distress. uncomfortable, Behavior is calm, cooperative, bp appropriate for age. Pain: Complains of pain in left wrist. Neuro: Level of Consciousness is awake, alert, obeys commands, Oriented to person, place, time, situation, Appropriate for age. Cardiovascular: No deficits noted. Respiratory: Airway is patent Respiratory effort is even, unlabored, Respiratory pattern is regular, symmetrical. GI: No signs and/or symptoms were reported involving the gastrointestinal system. : No signs and/or symptoms were reported regarding the genitourinary system. EENT: No deficits noted. Derm: No deficits noted. Musculoskeletal: No deficits noted. 12:30 Reassessment: FOREARM FX NOTED ON XRAY, RAD RESULTS AND SPLINTING PENDING. bp 14:10 Reassessment: PT D/C HOME VIA W/C WITH FAMILY, DX WITH DISTAL FOREARM FX. bp Vital Signs: 11:43 BP 165 / 91; Pulse 65; Resp 16; Temp 98.4; Pulse Ox 97% ; Weight 77.11 kg; Height 5 ft. bp 7 in. (170.18 cm); 12:58 BP 202 / 75; Pulse 67; Resp 16; Pulse Ox 100% ; ms 13:17 BP 180 / 107; Pulse 67; Resp 14; Pulse Ox 100% ; bp 11:43 Body Mass Index 26.63 (77.11 kg, 170.18 cm) bp ED Course: 11:14 Patient arrived in ED. rg4 11:14 Bianka Adkins MD is Private Physician. rg4 11:14 To Adhikari, TERRI is Primary Nurse. bp 11:16 Triage completed. bp 11:43 Too Natarajan MD is Attending Physician. kdr 11:55 Arm band placed on. bp 12:15 Inserted saline lock: 22 gauge in right antecubital area, using aseptic technique. bp Blood collected. 12:51 Forearm Left XRAY In Process Unspecified. EDMS 13:18 Patient has correct armband on for positive identification. Bed in low position. Call bp light in reach. Side rails up X2. 13:20 Orthoglass splint: Sugar tong splint applied on left arm. Sling applied to left arm. bp 13:57 Pedro Dickens MD is Referral Physician. kdr 14:00 No provider procedures requiring assistance completed. IV discontinued, intact, bp bleeding controlled, No redness/swelling at site. Pressure dressing applied. Administered Medications: 12:10 Drug: morphine 2 mg Route: IVP; Site: right antecubital; bp 13:59 Follow up: Response: Pain is decreased bp 13:20 Drug: morphine 2 mg Route: IVP; Site: right antecubital; bp 13:59 Follow up: Response: Pain is decreased bp Outcome: 13:58 Discharge ordered by . kdr 14:12 Discharged to home via wheelchair, with family. bp 14:12 Condition: stable 14:12 Discharge instructions given to patient, family, Instructed on discharge instructions, follow up and referral plans. medication usage, Demonstrated understanding of instructions, follow-up care, medications, Prescriptions given X 1. 14:13 Patient left the ED. bp Signatures: Dispatcher [employer] EDCA Too Natarajan MD MD [facility] Swapna Adame ms, Rubi 4 To Adhikari, RN RN bp
--- NOTE | 2018-03-08 13:59 | EDPHYS ---
Physician Documentation [facility] Name: Daxa Arvizu Age: 87 yrs Sex: Female : 1930 Arrival Date: 03/08/2018 Time: 11:14 Bed 5 Private MD: Bianka Adkins C ED Physician Too Natarajan HPI: 03/08 14:44 This 87 yrs old Female presents to ER via EMS with complaints of Wrist Injury.kdr 14:44 The patient or guardian reports decreased range of motion, deformity, injury, pain, kdr swelling, tenderness, weakness. The complaints affect the left wrist diffusely. Context: The problem was sustained at home, resulted from a fall, while walking. Onset: The symptoms/episode began/occurred suddenly, just prior to arrival. Modifying factors: The symptoms are alleviated by holding still, the symptoms are aggravated by movement, dependent position. Associated signs and symptoms: The patient has no apparent associated signs or symptoms. Compartment Syndrome negative for numbness, tingling. The patient has not experienced similar symptoms in the past. Historical: - Allergies: 11:29 Sulfa (Sulfonamide Antibiotics); bp 11:29 Codeine; bp - Home Meds: 11:29 Ranitidine Oral [Active]; Xarelto Oral [Active]; Sotalol Oral [Active]; Simvastatin bp Oral [Active]; Metoprolol Tartrate Oral [Active]; Hydromorphone Oral [Active]; Eliquis oral oral [Active]; - PMHx: 11:29 acid reflux; Atrial Fib; CHF; Hyperlipidemia; Hypothyroidism; legally blind; bp osteoarthritis; Osteoporosis; Pacemaker; - Immunization history:: Adult Immunizations up to date. - Social history:: Smoking status: Patient/guardian denies using tobacco. - Ebola Screening: : Patient negative for fever greater than or equal to 101.5 degrees Fahrenheit, and additional compatible Ebola Virus Disease symptoms Patient denies exposure to infectious person Patient denies travel to an Ebola-affected area in the 21 days before illness onset No symptoms or risks identified at this time. ROS: 16:51 Constitutional: Negative for fever, chills, and weight loss, Eyes: Negative for injury, kdr pain, redness, and discharge, ENT: Negative for injury, pain, and discharge, Neck: Negative for injury, pain, and swelling, Cardiovascular: Negative for chest pain, palpitations, and edema, Respiratory: Negative for shortness of breath, cough, wheezing, and pleuritic chest pain, Abdomen/GI: Negative for abdominal pain, nausea, vomiting, diarrhea, and constipation, Back: Negative for injury and pain, : Negative for injury, bleeding, discharge, and swelling, Skin: Negative for injury, rash, and discoloration, Neuro: Negative for headache, weakness, numbness, tingling, and seizure activity. Psych: Negative for depression, anxiety, suicide ideation, homicidal ideation, and hallucinations, Allergy/Immunology: Negative for hives, rash, and allergies, Endocrine: Negative for neck swelling, polydipsia, polyuria, polyphagia, and marked weight changes, Hematologic/Lymphatic: Negative for swollen nodes, abnormal bleeding, and unusual bruising. 16:51 MS/extremity: Positive for injury or acute deformity, decreased range of motion, deformity, pain, swelling, tenderness, warmth. Exam: 16:51 Constitutional: This is a well developed, well nourished patient who is awake, alert, kdr and in no acute distress. Head/Face: Normocephalic, atraumatic. Neck: Trachea midline, no thyromegaly or masses palpated, and no cervical lymphadenopathy. Supple, full range of motion without nuchal rigidity, or vertebral point tenderness. No Meningismus. Chest/axilla: Normal chest wall appearance and motion. Nontender with no deformity. No lesions are appreciated. Cardiovascular: Regular rate and rhythm with a normal S1 and S2. No gallops, murmurs, or rubs. Normal PMI, no JVD. No pulse deficits. Respiratory: Lungs have equal breath sounds bilaterally, clear to auscultation and percussion. No rales, rhonchi or wheezes noted. No increased work of breathing, no retractions or nasal flaring. Abdomen/GI: Soft, non-tender, with normal bowel sounds. No distension or tympany. No guarding or rebound. No evidence of tenderness throughout. Back: No spinal tenderness. No costovertebral tenderness. Full range of motion. Skin: Warm, dry with normal turgor. Normal color with no rashes, no lesions, and no evidence of cellulitis. Neuro: Awake and alert, GCS 15, oriented to person, place, time, and situation. Cranial nerves II-XII grossly intact. Motor strength 5/5 in all extremities. Sensory grossly intact. Cerebellar exam normal. Normal gait. Psych: Awake, alert, with orientation to person, place and time. Behavior, mood, and affect are within normal limits. 16:51 Musculoskeletal/extremity: Extremities: grossly normal except: noted in the left wrist: decreased ROM, deformity, pain, swelling, tenderness, No evidence of an open fracture. Vital Signs: 11:43 BP 165 / 91; Pulse 65; Resp 16; Temp 98.4; Pulse Ox 97% ; Weight 77.11 kg; Height 5 ft. bp 7 in. (170.18 cm); 12:58 BP 202 / 75; Pulse 67; Resp 16; Pulse Ox 100% ; ms 13:17 BP 180 / 107; Pulse 67; Resp 14; Pulse Ox 100% ; bp 11:43 Body Mass Index 26.63 (77.11 kg, 170.18 cm) bp Procedures: 16:51 Splinting: Splint applied to dorsal aspect of left forearm, left wrist and palmar kdr aspect of left forearm using Orthoglass splint, sling, applied by myself. Examined by me, post splint application: neurovascular intact, 2+ distal pulses palpable, brisk capillary refill noted, Patient tolerated well. MDM: 13:58 Patient medically screened. kdr 16:51 Data reviewed: vital signs, nurses notes. kdr 03/08 11:32 Order name: Urine Dipstick--Ancillary (enter results); Complete Time: 12:23 hb 03/08 11:53 Order name: CBC with Diff; Complete Time: 12:49 kdr 03/08 11:53 Order name: Forearm Left XRAY; Complete Time: 13:57 kdr 03/08 11:53 Order name: Chem 7; Complete Time: 12:49 kdr 03/08 11:53 Order name: PT-INR; Complete Time: 12:49 kdr 03/08 11:32 Order name: Urine Dipstick-Ancillary (obtain specimen); Complete Time: 11:32 hb Administered Medications: 12:10 Drug: morphine 2 mg Route: IVP; Site: right antecubital; bp 13:59 Follow up: Response: Pain is decreased bp 13:20 Drug: morphine 2 mg Route: IVP; Site: right antecubital; bp 13:59 Follow up: Response: Pain is decreased bp Disposition: 03/08/18 13:58 Discharged to Home. Impression: Left distal radius racture, comminuted and slosed. - Condition is Stable. - Discharge Instructions: Forearm Fracture, [id number], Cast or Splint Care, [id number]. - Prescriptions for Tylenol- Codeine #3 300-30 mg Oral Tablet - take 2 tablets by ORAL route every 6 hours As needed; 15 tablet. - Medication Reconciliation Form, Thank You Letter, Prescription Opioid Use form. - Follow up: Pedro Dickens MD; When: 2 - 3 days; Reason: If symptoms return, Further diagnostic work-up, Recheck today's complaints, Continuance of care, Re-evaluation by your physician. - Problem is new. - Symptoms have improved. Signatures: Dispatcher [employer] EDMS Too Natarajan MD MD [facility] Diann Petersen RN RN To Adhikari RN RN bp Corrections: (The following items were deleted from the chart) 14:13 13:58 03/08/2018 13:58 Discharged to Home. Impression: Left distal radius racture, bp comminuted and slosed. Condition is Stable. Forms are Medication Reconciliation Form, Thank You Letter, Antibiotic Education, Prescription Opioid Use. Follow up: Pedro Dickens; When: 2 - 3 days; Reason: If symptoms return, Further diagnostic work-up, Recheck today's complaints, Continuance of care, Re-evaluation by your physician. Problem is new. Symptoms have improved. kdr
[2018-03-08 14:22] VITALS: TEMP 98.4
[2018-03-08 14:24] VITALS: O2SAT 100
[2018-03-08 14:25] VITALS: BP 180/107
== END 2018-03-08 14:13 | disposition home or self-care (01) ==
LOC: ER 11:06
PROC: 2W3DX1Z Immobilization of Left Lower Arm using Splint (ICD-10-PCS; principal; 2018-03-08)
DX: S52.502A Unspecified fracture of the lower end of left radius, initial encounter for closed fracture (principal); W01.0XXA Fall on same level from slipping, tripping and stumbling without subsequent striking against object, initial encounter; Y93.01 Activity, walking, marching and hiking; Y92.009 Unspecified place in unspecified non-institutional (private) residence as the place of occurrence of the external cause; I48.91 Unspecified atrial fibrillation; I50.9 Heart failure, unspecified; E78.5 Hyperlipidemia, unspecified; E03.9 Hypothyroidism, unspecified; H54.8 Legal blindness, as defined in USA; M81.0 Age-related osteoporosis without current pathological fracture; Z88.5 Allergy status to narcotic agent; Z88.2 Allergy status to sulfonamides; Z79.01 Long term (current) use of anticoagulants
CPT/HCPCS: 29125; 36415; 73090; 80048; 81003; 85025; 85610; 96374; 99284; J2270 ×2

== ENCOUNTER 2019-03-03 08:26 | Day surgery (SDC) | payer OTHER ==
--- OUTSIDE RECORDS SUMMARY | 2019-03-03 08:30 | XMS REPORT ---
:1930 [facility] Address [address] [place] [address] [place] [id number] Care Team Providers Name Role Phone Unavailable Unavailable Unavailable Problems This patient has no known problems. Allergies, Adverse Reactions, Alerts This patient has no known allergies or adverse reactions. Medications This patient has no known medications.
[2019-03-03 09:08] LABS: MPV 8.9 fL (7.6-11.3)
[2019-03-03 09:13] LABS: Protime INR 1.04
[2019-03-03 09:23] VITALS: TEMP 97.2; O2SAT 100
[2019-03-03 09:24] VITALS: BMI 26.6
--- NOTE | 2019-03-03 12:17 | RAD REPORT ---
EXAM DESCRIPTION: RAD - Lumbar Spine - Single View - 03/03/2019 12:05 pm CLINICAL HISTORY: Back pain FINDINGS: The patient presented for a lumbar myelogram. The patient has advanced spondylosis. The risks, benefits and alternatives to the procedure were explained to the patient and informed cons ent obtained Patient was placed prone into the fluoroscopy suite. The skin and subcutaneous tissues were anestheti zed with lidocaine. Under fluoroscopic guidance a 22 gauge spinal needle was advanced into the spinal canal at several levels. AP and lateral views confirmed the tip of the needle within the the spinal canal. However, CSF did not flow from the needle. Subsequently, the fluoroscopy unit malfunctioned and could not be restarted so the examination could not be completed
[2019-03-03 12:44] VITALS: BP 182/61
== END 2019-03-03 12:15 | disposition home or self-care (01) ==
LOC: DS 08:26
PROVIDERS: ATTEND Orthopaedic Surgery
PROC: B01BYZZ Fluoroscopy of Spinal Cord using Other Contrast (ICD-10-PCS; principal; 2019-03-03)
DX: M47.896 Other spondylosis, lumbar region (principal)
CPT/HCPCS: 36415; 72020; 85049; 85610; 85730